=== PATIENT | male | born 1965 | race African-American/Black ===

== ENCOUNTER 2021-12-11 07:55 | Emergency (ER) | payer MEDICAID, OTHER ==
[~2021-12-11] VITALS: Ht 175.3 cm; Wt 65.8 kg
[2021-12-11 08:39] VITALS: BP 127/89
== END 2021-12-11 09:19 | disposition home or self-care (01) ==
LOC: ER 07:55
DX: S82.51XA Displaced fracture of medial malleolus of right tibia, initial encounter for closed fracture (principal); V43.52XA Car driver injured in collision with other type car in traffic accident, initial encounter; Y93.89 Activity, other specified; Y92.488 Other paved roadways as the place of occurrence of the external cause; Y99.8 Other external cause status
CPT/HCPCS: 29515; 73610; 73630

== ENCOUNTER 2022-06-09 07:10 | Emergency (ER) | payer MEDICAID ==
[~2022-06-09] VITALS: Ht 175.3 cm; Wt 57.8 kg
[2022-06-09 07:50] VITALS: BP 107/70
[2022-06-09] MEDS ORDERED: CEPH-509 PO (08:11)
[2022-06-09] MEDS ORDERED: IBUP800T27 PO (08:11)
[2022-06-09] MEDS ORDERED: IBUPROFEN 800 MG TAB PO ONE (08:15)
== END 2022-06-09 08:22 | disposition home or self-care (01) ==
LOC: ER 07:10
DX: S93.402A Sprain of unspecified ligament of left ankle, initial encounter (principal); S80.812A Abrasion, left lower leg, initial encounter; W22.8XXA Striking against or struck by other objects, initial encounter; Y93.89 Activity, other specified; Y92.89 Other specified places as the place of occurrence of the external cause; Y99.8 Other external cause status
CPT/HCPCS: 73610; 73620